=== PATIENT | male | born 1955 | race Caucasian/White ===

== ENCOUNTER 2023-05-13 14:29 | Emergency (ER) | payer MEDICAID ==
[~2023-05-13] VITALS: Ht 167.6 cm; Wt 58.0 kg
[2023-05-13 14:35] VITALS: O2SAT 98
[2023-05-13 15:12] LABS: BASOPHILS % 0.9 % (0.0-2.0); EOSINOPHILS % 0.8 % (0.0-5.0); HEMATOCRIT. 50.3 % (42.0-52.0); HEMOGLOBIN. 17.4 g/dL (14.0-18.0); LYMPHOCYTES % 29.1 % (20.0-50.0); MEAN CORPUSCULAR HEMOGLOBIN 29.7 pg (28.0-32.0); MEAN CORPUSCULAR HGB CONC 34.5 g/dL (31.0-37.0); MEAN PLATELET VOLUME 9.4 fl (7.4-10.4); MONOCYTES % 4.8 % (2.0-8.0); NEUTROPHILS % 64.4 % (40.0-76.0); PLATELET 163 x1000/uL (130-400); RED BLOOD CELL COUNT 5.85 mill/uL (4.7-6.1); WHITE BLOOD COUNT 6.6 x1000/uL (4.5-11.0)
[2023-05-13 15:32] LABS: ALANINE AMINOTRANSFERASE 22 IU/L (10-49); ALBUMIN 4.6 g/dL (3.2-4.8); ASPARTATE AMINOTRANSFERASE 17 IU/L (<34); CALCIUM 8.9 mg/dL (8.7-10.4); CARBON DIOXIDE 25 mEq/L (21-32); CHLORIDE 102 mEq/L (98-107); GLUCOSE 353 mg/dL (70-105); POTASSIUM 4.1 mEq/L (3.5-5.1); SODIUM 134 mEq/L (136-145); TROPONIN I HIGH SENSITIVITY 7 ng/L (3.0-53); UREA NITROGEN BLOOD 13 mg/dL (9-23)
[2023-05-13 18:13] LABS: CLARITY URINE CLEAR (CLEAR); COLOR URINE YELLOW (YELLOW); GLUCOSE URINE 3+ (NEGATIVE); KETONES URINE NEGATIVE (NEGATIVE); LEUKOCYTE ESTERASE URINE NEGATIVE (NEGATIVE); NITRITE URINE NEGATIVE (NEGATIVE); OCCULT BLOOD URINE NEGATIVE (NEGATIVE); PH URINE 5.5 (4.5-8.0); PROTEIN URINE TRACE (NEGATIVE); SPECIFIC GRAVITY URINE 1.042 (1.005-1.030)
[2023-05-13 19:02] LABS: RBC URINE 0-2 /hpf (0-2); SQUAMOUS EPITHELIAL CELL URINE RARE /lpf (RARE/1+); WBC URINE 0-2 /hpf (0-2)
[2023-05-13 19:03] LABS: BACTERIA URINE 1+
[2023-05-13 20:45] VITALS: BP 135/75; PULSE 56; RESP 18; TEMP 97.8
[2023-05-13] MEDS: ACETAMINOPHEN 325MG TABLET PO ONE (20:45)
[2023-05-13] MEDS: IBUPROFEN 600MG TABLET PO ONE (20:45)
[2023-05-13] MEDS ORDERED: TOPUD MT (21:03)
[2023-05-13] MEDS ORDERED: IBUP-1523 MT (21:03)
== END 2023-05-13 21:35 | disposition home or self-care (01) ==
LOC: ER 15:07
DX: N43.3 Hydrocele, unspecified (principal); I10 Essential (primary) hypertension
CPT/HCPCS: 36415; 74176; 80053; 81003; 84484; 85025; 93005; 99284